=== PATIENT | male | born 1995 | race Caucasian/White ===

== ENCOUNTER 2020-09-22 07:14 | Observation (INO) ==
[2020-09-22] MEDS ORDERED: Isovue-370 500 ML BOTTLE IVP ONE (08:29)
[2020-09-22 08:53] LABS: BUN/Creatinine Ratio 14 (6-26); Blood Urea Nitrogen 12 mg/dL (6-20); Calcium 9.1 mg/dL (8.6-10.3); Carbon Dioxide 25 mEq/L (23-29); Chloride 105 mEq/L (98-107); Glucose 108 mg/dL (70-105); Osmolality,Calculated 286 (280-300); Potassium 3.4 mEq/L (3.5-5.1); Sodium 138 mEq/L (136-145); eGFR For African Americans > 60 (> 60); eGFR For Non-African Americans > 60 (> 60)
[2020-09-22 09:08] LABS: Hematocrit 40.8 % (37.5-50.1); Hemoglobin 13.5 g/dL (12.9-16.9); Mean Corpuscular HGB Conc 33.1 g/dL (31.6-35.5); Mean Corpuscular Hemoglobin 28.4 pg (28.0-33.3); Mean Corpuscular Volume 85.9 fL (83.0-100.0); Mean Platelet Volume 10.8 fL (9.4-12.4); Platelet Count 180 K/mcL (140-400); Red Blood Count 4.75 M/mcL (4.19-5.50); Red Cell Distribution Width 13.2 % (11.5-14.5)
[2020-09-22] MEDS: 0.9 % Sodium Chloride 1,000 ML IVC SCH ×2 (09:24→11:48)
[2020-09-22 11:25] LABS: Acetaminophen < 10 mcg/mL (10-20); Ethanol < 10 mg/dL (Less than 10); Salicylate < 2.5 mg/dL (15.0-30.0)
[2020-09-22 11:39] LABS: Bilirubin,Urine Negative (Negative); Blood,Urine Negative (Negative); Clarity,Urine Clear (Clear); Color,Urine Light-Yellow (Yellow); Glucose,Urine (UA) Normal (Normal); Ketones,Urine Negative (Negative); Leukocyte Esterase,Urine Negative (Negative); Nitrite,Urine Negative (Negative); Protein,Urine Trace mg/dL (Neg-Trace); Specific Gravity,Urine > 1.030 (1.010-1.025); Urobilinogen,Urine Normal (Normal)
[2020-09-22 11:55] LABS: Amphetamine Screen,Urine Negative ng/mL (Cutoff=1000); Barbiturate Screen,Urine Negative ng/mL (Cutoff=200); Benzodiazepines Screen,Urine Negative ng/mL (Cutoff=200); Cannabinoid Screen,Urine Positive ng/mL (Cutoff = 50); Cocaine Screen,Urine Negative ng/mL (Cutoff= 300); Opiate Screen,Urine Negative ng/mL (Cutoff=300); Phencyclidine Screen,Urine Negative ng/mL (Cutoff=25)
[2020-09-22] MEDS ORDERED: Mag Hydrox/Al Hydrox/Simeth 30 ML UDC PO PRN (13:23)
[2020-09-22] MEDS ORDERED: haloperidoL 5 MG TABLET PO PRN (13:23)
[2020-09-22] MEDS ORDERED: Acetaminophen 325 MG TABLET PO PRN (13:23)
[2020-09-22] MEDS ORDERED: *HR* LORazepam 2 MG/ML VIAL IM PRN (13:23)
[2020-09-22] MEDS ORDERED: traZODone 50 MG TABLET PO PRN (13:23)
[2020-09-22] MEDS ORDERED: MOM Conc 10 ML UD.LIQ PO PRN (13:23)
[2020-09-22] MEDS ORDERED: *HR* LORazepam 1 MG TABLET PO PRN (13:23)
[2020-09-22] MEDS ORDERED: Haloperidol Lactate 5 MG/ML VIAL IM PRN (13:23)
[2020-09-22 15:04] LABS: Adenovirus Not Detected (Not Detect); Bordetella Pertussis Not Detected (Not Detect); Chlamydophila pneumoniae Not Detected (Not Detect); Coronavirus 229E Not Detected (Not Detect); Coronavirus HKU1 Not Detected (Not Detect); Coronavirus NL63 Not Detected (Not Detect); Coronavirus OC43 Not Detected (Not Detect); Human Metapneumovirus Not Detected (Not Detect); Human Rhinovirus/Enterovirus Not Detected (Not Detect); Influenza A Subtype 2009 H1 Not Detected (Not Detect); Influenza B Not Detected (Not Detect); Mycoplasma pneumoniae Not Detected (Not Detect); Parainfluenza Virus 1 Not Detected (Not Detect); Parainfluenza Virus 2 Not Detected (Not Detect); Parainfluenza Virus 3 Not Detected (Not Detect); Parainfluenza Virus 4 Not Detected (Not Detect); Respiratory Syncytial Virus Not Detected (Not Detect); SARS-CoV-2 Not Detected (Not Detect)
[2020-09-22] MEDS: Nicotine 2 MG GUM BC PRN ×2 (17:35→20:32)
[2020-09-22] MEDS: hydrOXYzine pamoate 25 MG CAPSULE PO PRN (20:33)
[2020-09-23] MEDS: hydrOXYzine pamoate 25 MG CAPSULE PO PRN (09:16)
[2020-09-23] MEDS: Nicotine 2 MG GUM BC PRN ×2 (09:16→12:41)
[2020-09-23 11:10] VITALS: BP 157/91; PULSE 61; TEMP 98.5; O2SAT 98
== END 2020-09-23 14:35 | disposition home or self-care (01) ==
LOC: EMEROOARM 07:14 → INTOOBSV 15:27 → 1ANU 15:27
PROVIDERS: ADMIT Psychiatry & Neurology Psychiatry; ATTEND Psychiatry & Neurology Psychiatry